=== PATIENT | male | born 1955 | race Caucasian/White ===

== ENCOUNTER 2017-07-14 11:03 | Emergency (ER) | payer OTHER ==
[~2017-07-14 11:03] MED LIST: GLUC750T22 PO; IBUP800T23 PO; OMEG5CAP PO; ROSU40 PO; TAB-TAB PO; [UNRECOGNIZED DRUG - OTHER] PO
[2017-07-14 11:29] VITALS: BP 179/89; PULSE 71; RESP 16; TEMP 97.5; O2SAT 97
[2017-07-14] MEDS ORDERED: ALLO100T PO (12:24)
[2017-07-14] MEDS ORDERED: ROSU40 PO (12:24)
[2017-07-14] MEDS ORDERED: GLUC100013 (12:26)
--- NOTE | 2017-07-14 12:44 | PD ---
HPI Chief Complaint: Injury Time Seen by Provider: 12:23 Travel History International Travel<30 days: No Contact w/Intl Traveler<30days: No Traveled to known affect area: No History of Present Illness HPI Patient comes emergency department complaining of left heel pain that began this morning around 930 when he fell about 4 feet off a ladder landing on his left heel on concrete. Patient reports throbbing aching pain in his heel that radiates distally. Patient reports he is not put weight on his foot secondary to the pain. Patient's been using crutches for this. Patient went to see his orthopedic, Dr. Loredo, as he already had an appointment with for a bump on his shoulder and was sent to the emergency department for further evaluation of his heel pain. Not standing improves the pain. PFSH Past Medical History Cancer: No Cardiovascular Problems: No Diabetes: No Endocrine: No Genitourinary: No Hepatitis: No Hiatal Hernia: No Immune Disorder: No Musculoskeletal: Yes (arthritis) Neurologic: No Psychiatric: No Reproductive: No Respiratory: No Thyroid Disease: No Past Surgical History Abdominal Surgery: Yes (5 hernia inguinal hernia repair) AICD: No Body Medical Devices: implants for dentures Joint Replacement: No Pacemaker: No Social History Alcohol Use: Yes Tobacco Use: No Substance Use: No Allergies-Medications (Allergen,Severity, Reaction): Coded Allergies: No Known Allergies (Unverified Adverse Reaction, Unknown, 07/14/17) Reported Meds & Prescriptions Reported Meds & Active Scripts Active [place] (Hydrocodone-Acetaminophen) 5 Mg-325 Mg Tab 1 Tab PO Q6H PRN Reported Glucosamine (Glucosamine Sulfate) 1,000 Mg Cap 1,000 Mg DAILY Allopurinol 100 Mg Tab 100 Mg PO DAILY Crestor (Rosuvastatin Calcium) 40 Mg Tab 40 Mg PO DAILY Review of Systems Except as stated in HPI: all other systems reviewed are Neg Physical Exam Narrative GENERAL: Well-developed, overly nourished, in no acute distress, and non-ill appearing. SKIN: Focused skin assessment warm and dry. HEAD: Atraumatic. Normocephalic. EYES: Pupils equal and round. EOMI. No scleral icterus. No injection or drainage. ENT: No nasal bleeding or discharge. Mucous membranes pink and moist. NECK: Trachea midline. Supple. No nuclear rigidity. CARDIOVASCULAR: Dorsal pulses 2+, intact, and equal bilaterally. Capillary refill less than 2 seconds. RESPIRATORY: No accessory muscle use. No respiratory distress. MUSCULOSKELETAL: No obvious deformities. No clubbing. No cyanosis. No edema. Full range of motion. Ankle: Neagative anterior draw and Guerra test. Negative Anne-Marie's sign. No laxity noted with passive inversion and eversion of BL ankles. Positive squeeze test on the left. Pulses equal BL distal to injury. Capillary refill less than 2 seconds distal to injury and equal BL. Sensation equal BL 1st web space. FROM of toes distal to injury and equal BL. NV intact distal to injury and equal BL. Dorsal pulses equal BL. No crepitus. Minimal soft tissue swelling noted. NEUROLOGICAL: Awake and alert. No obvious cranial nerve deficits. Motor grossly within normal limits. Normal speech. PSYCHIATRIC: Appropriate mood and affect; insight and judgment normal. Data Data Last Documented VS Vital Signs Date Time Temp Pulse Resp B/P (MAP) Pulse Ox O2 Delivery O2 Flow Rate FiO2 07/14/17 11:29 97.5 71 16 179/89 (119) 97 Orders Orders Foot, Complete (Vco2ugr) (07/14/17 ) Acetamin-Hydrocod 325-5 Mg ([place] 5-325 (07/14/17 12:45) Ct Foot W/O Contrast (07/14/17 ) Splint Or Brace Apply/Monitor (07/14/17 12:40) Ice/Cold Pack (07/14/17 12:40) Ed Discharge Order (07/14/17 14:06) Acetamin-Hydrocod 325-5 Mg ([place] 5-325 (07/14/17 14:45) MDM Medical Decision Making Medical Screen Exam Complete: Yes Emergency Medical Condition: Yes Interpretation(s) Last Impressions Lower Extremity CT 07/14/17 0000 Signed Impressions: Service Date/Time: July 13:09 - CONCLUSION: Comminuted fracture through the body of the calcaneus. Fracture line extends into the subtalar joint along the medial side. Luis Yi MD Foot X-Ray 07/14/17 0000 Signed Impressions: Service Date/Time: July 11:49 - CONCLUSION: Fractured calcaneus. Alfredo Avila MD Differential Diagnosis Fracture, sprain, contusion, dislocation Narrative Course The patient sustained a fracture. The distal extremity appears neurovascularly intact, without evidence of neurovascular injury nor compartment syndrome. Tendon exam also was intact. The effected limb was splinted. The patient was discharged on pain medication along with fracture and splint care instructions and given warnings for vascular compromise. The patient is to follow up with Orthopedics. The patient agrees with plan. Patient in no obvious distress upon re-evaluation. All pertinent Radiology result(s) discussed with patient/family. Patient was asked if they wanted to speak to my attending, which the patient did not wish to do at this time. Any questions/concerns in reference to patient diagnosis/condition discussed and clarified prior to patient's discharge. Reinforced sheer importance of close follow up with orthopedic. Instructed patient to return to ED immediately, if symptoms return/worsen. Patient showed understanding of above instructions. Further instructions and recommendations were detailed in discharge paperwork. Patient ambulated without difficulty out of ED at discharge with crutches. Physician Communication Physician Communication Discussed patient with Dr. Richards, orthopedic on-call, who recommends CT, heavily padded splint, nonweightbearing, no NSAIDs, and outpatient follow-up. Diagnosis Primary Impression: Calcaneus fracture, left Qualified Codes: S92.002A - Unspecified fracture of left calcaneus, initial encounter for closed fracture Referrals: Tiago Richards MD Patient Instructions: Calcaneal Fracture (ED), Crutch Instructions (ED), General Instructions, Splint Care (ED) Additional Instructions: Follow-up with orthopedic in 1-3 days for reevaluation. Take all medication as prescribed. Do not apply any weight to your left foot until cleared by orthopedics. Elevate affected foot frequently to decrease pain and swelling. Apply ice to affected area 20 min/h to decrease pain and swelling. Do not take [id number] ibuprofen, Aleve, Motrin, or other anti-inflammatories as this may increase bleeding and pain in the heel. Return to the emergency department if symptoms get worse. Med/Other Pt SpecificInfo: Prescription(s) given Scripts Hydrocodone-Acetaminophen ([place]) 5 Mg-325 Mg Tab 1 TAB PO Q6H Y for PAIN GREATER THAN 7, #16 TAB 0 Refills Prov: Bradly Degroot MD 07/14/17 Disposition: 01 DISCHARGE HOME Condition: Stable Jhon Rdz 8, 2018 12:44
[2017-07-14] MEDS ORDERED: ACETAMINOPHEN/HYDROcodone 325 MG/5 MG TAB PO ONE ×2 (12:45→14:45)
--- NOTE | 2017-07-14 12:51 | RADRPT ---
EXAM DATE/TIME: 07/14/2017 11:49 [facility] COMPARISON: No previous studies available for comparison. INDICATIONS : Pain post fall. MEDICAL HISTORY : None. SURGICAL HISTORY : None. ENCOUNTER: Initial ACUITY: 1 day PAIN SCORE: 10/10 LOCATION: Left Foot. FINDINGS: A nondisplaced fracture is seen along the long axis of the calcaneus extending from the inferior post erior margin to the subtalar joint. Midfoot and forefoot are intact. Soft tissue swelling is noted. CONCLUSION: Fractured calcaneus. Alfredo Avila MD on July 14, 2017 at 12:47 Board Certified Radiologist. This report was verified electronically.
--- NOTE | 2017-07-14 13:47 | RADRPT ---
EXAM DATE/TIME: 07/14/2017 13:09 [facility] COMPARISON: FOOT LEFT COMPLETE ([id number]), July 14, 2017, 11:49. INDICATIONS : Left foot pain due to fall. RADIATION DOSE: 7.29 CTDIvol (mGy) MEDICAL HISTORY : Gout. SURGICAL HISTORY : Hernia repair. ENCOUNTER: Initial ACUITY: 1 day PAIN SCALE: 8/10 LOCATION: Left heel TECHNIQUE: Volumetric scanning of the foot was performed. Using automated exposure control and adjustment of th e mA and/or kV according to patient size, radiation dose was kept as low as reasonably achievable to obtain optimal diagnostic quality images. DICOM format image data is available electronically for re view and comparison. FINDINGS: BONES: There is a comminuted fracture through the body of the calcaneus. The fracture line extends up to the subtalar joint on the medial side. No joint dislocation is demonstrated. The talus bone is intact. T he mid tarsal and metatarsal bones are intact. The distal tibia and fibular are grossly intact. No david int dislocation is demonstrated. SOFT TISSUES: There is soft tissue swelling in the region of the calcaneus CONCLUSION: Comminuted fracture through the body of the calcaneus. Fracture line extends into the subtalar joint along the medial side. Luis Yi MD on July 14, 2017 at 13:41 Board Certified Radiologist. This report was verified electronically.
[2017-07-14] MEDS ORDERED: NORC5TAB PO (13:52)
== END 2017-07-14 15:03 | disposition home or self-care (01) ==
LOC: NEPK 11:03
DX: S92.002A Unspecified fracture of left calcaneus, initial encounter for closed fracture (principal); M19.90 Unspecified osteoarthritis, unspecified site; W11.XXXA Fall on and from ladder, initial encounter; Z79.899 Other long term (current) drug therapy
CPT/HCPCS: 29515; 73630; 73700